=== PATIENT | female | born 1980 | race American Indian/Alaskan Native ===

== ENCOUNTER 2017-05-11 18:05 | Emergency (ER) | payer OTHER ==
[2017-05-11 19:06] VITALS: BMI 27.9
[2017-05-11 20:24] LABS: HEMATOCRIT 33.9 % (34.0-47.0); MEAN CELL VOLUME 91.4 fl (81.0-99.0); MEAN CORPUSCULAR HEMOGLOBIN 29.8 pg (27.0-31.0); MEAN CORPUSCULAR HGB CONC 32.6 g/dL (33.0-37.0); RED CELL DISTRIBUTION WIDTH 13.9 % (11.5-14.5); WHITE BLOOD COUNT 10.5 K/uL (4.8-10.8)
[2017-05-11 20:28] LABS: RBC URINE 2 /hpf (0-3); URINE BACTERIA OCC (<OCC); URINE BILIRUBIN NEGATIVE (NEGATIVE); URINE BLOOD NEGATIVE (NEGATIVE); URINE COLOR AMBER (YELLOW); URINE GLUCOSE (UA) 50 mg/dL (Normal); URINE KETONE NEGATIVE (NEGATIVE); URINE LEUKOCYTE ESTERASE NEG Leu/uL (Negative); URINE PROTEIN 30 mg/dL (NEGATIVE); WBC URINE 1 /hpf (0-5)
[2017-05-11] MEDS: Lactated Ringer's 1,000 ML IV SCH ×2 (20:28→20:29)
[2017-05-11 20:37] LABS: ALB/GLOB RATIO 1.2 (1.0-2.1); ALKALINE PHOSPHATASE 120 U/L (38-126); ALT/SGPT 28 U/L (9-52); AST/SGOT 28 U/L (14-36); BILIRUBIN,TOTAL 0.8 mg/dl (0.2-1.3); BLOOD UREA NITROGEN 7 mg/dl (7-17); CALCIUM 9.2 mg/dL (8.4-10.2); CARBON DIOXIDE 24 mmol/L (22-30); CHLORIDE 104 mmol/L (98-107); GFR AFRICAN-AMERICAN > 60; GLUCOSE,RANDOM 69 mg/dL (65-105); POTASSIUM 4.2 MMOL/L (3.6-5.0); SODIUM 136 mmol/l (132-148); TOTAL PROTEIN 7.5 G/DL (6.3-8.2)
--- NOTE | 2017-05-11 22:09 | OBHP ---
Datetime: 05/11/2017 19:08 IP Adm Impression: , intrauterine ; No Active Labor; Intact Membranes IP Admit Plan: Observation/Evaluation Admit Comment, IP Provider: CHIEF COMPLAINT:CTX, v HPI: 36 yo at 35 wks GA with EDC by lmp ...+: FM/CTX - ROM, VB last U/S 04/28 (with high risk Dr. Ramirez) last visit 05/09 (Dr. Miller) GBS? She shares of experiencing contractions, low back pain, increased low abdominal pain with droplets of clear fluid in her panty liner today. Vomiting x2. Due to history X2 of premature deliveries at 32 and 31 weeks: Cerclage was placed on 01/05/2017; s cheduled to be removed within the next week. Bed rest since 12/21/2016 PAST OB HX: 2007 C/S @ 32 wk preeclampsia M; 2009 C/S @ 31 wk M PAST [employer] HX: STD, PAP 11/30/2016 PMHX: G6PD; PAST SX HX: c/s X2 SOCIAL HX: denies: SMOKING, ALCOHOL, DRUGS MEDICATION: PNV, progesterone, Fe, Calcium ALLERGIES: ASA, sulfa VITALS: 127/72 PE: General: pleasant, in no acute distress HEENT: normocephalic, PERRLA; AAOx3 Heart: no murmurs, regular rate and rhythm, S1, S2 normal. Lungs: clear to auscultation bilaterally, no wheezing Abodmen: gravid CVA: negative SSE/PELVIC EXN: no external lesions present, no pooling of amniotic fluid appreciated; cervix with cerclage Bed side u/s: many pockets of amniotic fluid surrounding fetus in vertex position. MONITOR (normal) Variablity: moderate: 6-25 bpm ACC: 15x15 DECC: none FHR: 146 ASSESSMENT: 36 yo at wks with h/o 2 previous deliveries via c/s observed for evaluati on and further assesment. Cerclage in place. Negative for ROM: multiple fluid pockets surrounding fetus in vertex positioning. PLAN: IV LR, u/a, cmp, cbc The patient was seen with the resident and I agree with the note. Pt cleared for discharge f/u with PMD Pelvic Type - PN: Adequate Extremities - PN: Normal Abdomen - PN: Normal Back - PN: Normal Breast - PN: Not Done Lungs - PN: Normal Heart - PN: Normal Thyroid - PN: Not Done Neurologic - PN: Normal HEENT - PN: Normal General - PN: Normal FHR - Baseline A Provider: [id number] EGA AdmitDate IP: 35.0 Vital Signs Provider: Reviewed; Within Normal Limits IP Chief Complaint: Uterine contractions; Suspected ruptured membranes NICHD Variability Prov Fetus A: Moderate 6-25bpm NICHD Accel Fetus A IP Provider: [id number] FHR Category Provider Fetus A: Category I NICHD Decel Fetus A IP Provider: None Dilatation, Provider: cerclage Genitourinary Exam: Normal DTRs - PN: Not Done
[2017-05-12 01:18] VITALS: BP 118/58; PULSE 82; RESP 16; TEMP 97.6
== END 2017-05-11 21:00 | disposition home or self-care (01) ==
LOC: H.EROB 18:05 → H.EROB2 18:05
DX: O47.03 False labor before 37 completed weeks of gestation, third trimester (principal); Z3A.35 35 weeks gestation of pregnancy; O26.873 Cervical shortening, third trimester; O09.93 Supervision of high risk pregnancy, unspecified, third trimester
CPT/HCPCS: 80053; 81003; 85027; 96360; 99283; J7120